=== PATIENT | male | born 1945 | race Caucasian/White ===

== ENCOUNTER 2018-03-08 21:47 | Observation (INO) | payer OTHER ==
[~2018-03-08] VITALS: Ht 167.6 cm; Wt 135.0 kg
[~2018-03-08 21:47] MED LIST: BLOO-462 MC; CITA-107 PO; CLOR7.5T5 PO; DEXL60CA3 PO; DIGO250T13 PO; DILT240C3 PO; ENAL1TAB11 PO; FLUT16H NASAL; FURO20TA4 PO; GLYB5TAB8 PO; GUAI600T94 PO; METF-446 PO; METH1TAB55 PO; MONT10TA24 PO; PIOG30TA70 PO; RIVA20TA PO; SIMV10TA6 PO; SYMB8060 IH; TERA10CA4 PO; [UNRECOGNIZED DRUG - CODE] MC
[2018-03-08] MEDS ORDERED: SODIUM CHLORIDE 0.9% 500ML 500 ML IV ONE (22:08)
[2018-03-08 22:12] LABS: BASOPHILS % (AUTO) 0.8 % (0.0-5.0); EOSINOPHILS % (AUTO) 0.3 % (0.0-8.0); HEMATOCRIT 35.9 % (42-54); LYMPHOCYTES % (AUTO) 18.7 % (21.0-51.0); MEAN CORPUSCULAR HEMOGLOBIN 33.1 pg (27.0-33.0); MEAN CORPUSCULAR HGB CONC 32.4 g/dL (32.0-36.0); NEUTROPHILS % (AUTO) 73.2 % (40.0-77.0); NUCLEATED RED BLOOD CELLS 0.1 % (0.0-0.19); PLATELET COUNT (AUTO) 168 K/uL (130-400); RED BLOOD CELL COUNT(AUTO) 3.52 MIL/uL (4.50-6.20); RED CELL DISTRIBUTION WIDTH 17.1 % (11.0-15.5); WHITE BLOOD COUNT (AUTO) 9.3 K/uL (4.8-10.8)
[2018-03-08 22:14] LABS: CREATININE 1.4 mg/dL (0.5-1.5)
[2018-03-08 22:18] LABS: INR 1.02 (0.85-1.15); PARTIAL THROMBOPLASTIN TIME 33.5 SEC (26.3-35.5); PROTHROMBIN TIME 10.7 SEC (9.6-11.6)
[2018-03-08 22:19] LABS: ALBUMIN 3.1 g/dL (3.5-5.0); BILIRUBIN,TOTAL 0.2 mg/dL (0.2-1.0); TOTAL PROTEIN, SERUM 7.2 g/dL (6.0-8.3)
[2018-03-09 00:02] LABS: APPEARANCE,URINE Clear (CLEAR); BILIRUBIN,URINE Negative (NEGATIVE); COLOR,URINE Yellow (YELLOW); GLUCOSE, URINE (UA) Negative (NEGATIVE); KETONES,URINE Negative (NEGATIVE); LEUKOCYTE ESTERASE ,URINE Negative (NEGATIVE); NITRATE,URINE Negative (NEGATIVE); OCCULT BLOOD,URINE Negative (NEGATIVE); PROTEIN,URINE Negative (NEGATIVE); UROBILINOGEN,URINE 0.2 mg/dL (0.2-1.0)
[2018-03-09] MEDS ORDERED: DEXTROSE 50%-WATER 50 ML DISP.SYRIN IV ONE (00:53)
[2018-03-09] MEDS ORDERED: IPRATROPIUM/ALBUTEROL SULFATE 3 ML SOLUTION IH ONE (02:27)
[2018-03-09] MEDS ORDERED: LACTATED RINGERS 1000ML 1,000 ML IV SCH (03:30)
[2018-03-09] MEDS ORDERED: PHARMACY COMMUNICATION MISC SCH (03:30)
[2018-03-09] MEDS ORDERED: MORPHINE SULFATE 2 MG/ML 1ML SYG IVP PRN (03:30)
[2018-03-09] MEDS ORDERED: DEXTROSE 50%-WATER 50 ML DISP.SYRIN IV PRN (03:30)
[2018-03-09] MEDS ORDERED: GLUCAGON 1MG KIT 1 MG ML IM PRN (03:30)
[2018-03-09] MEDS ORDERED: ONDANSETRON HCL MDV 20ML 2 MG/ML VIAL IVP PRN (03:30)
[2018-03-09] MEDS ORDERED: ACETAMINOPHEN 325 MG TAB PO PRN (03:30)
[2018-03-09] MEDS ORDERED: SODIUM CHLORIDE 0.9% 1000ML 1,000 ML IV ONE (05:03)
[2018-03-09] MEDS ORDERED: THIAMINE HCL 100 MG/ML 2ML VIAL ONE (05:03)
[2018-03-09] MEDS ORDERED: M.V.I. IV [ADULT] 10 ML VIAL IV ONE (05:04)
[2018-03-09] MEDS ORDERED: FOLIC ACID 5 MG/ML 10 ML VIAL ONE (05:05)
[2018-03-09] MEDS ORDERED: INSULIN R NPO SSI SQ SCH (06:00)
[2018-03-09 06:35] VITALS: BP 135/72
--- NOTE | 2018-03-09 08:00 | NUR ---
PT AAO X [address] UPDATE [address]. MICHAEL CALL LIGHT IN REACH..
[2018-03-09] MEDS ORDERED: COMPOUND IV REFRIGERATED 1 EACH IVSOLN MISC PRN (08:45)
[2018-03-09] MEDS ORDERED: M.V.I. IV [ADULT] 10 ML, THIAMINE HCL 100 MG, FOLIC ACID 1 MG in SODIUM CHLORIDE 0.9% 1... IV SCH ×2 (09:00→15:52)
[2018-03-09] MEDS: PANTOPRAZOLE SODIUM 40 MG TABLET.DR PO SCH (10:36)
[2018-03-09 12:17] VITALS: BP 106/44
[2018-03-09] MEDS ORDERED: IPRA4AER IH (15:35)
[2018-03-09] MEDS ORDERED: FURO40TA7 PO (15:35)
[2018-03-09] MEDS ORDERED: APIX5TAB PO (15:35)
[2018-03-09] MEDS ORDERED: METF-446 PO (15:35)
[2018-03-09] MEDS ORDERED: GLIP5TAB11 PO (15:35)
[2018-03-09] MEDS ORDERED: FLEC100T3 PO (15:35)
[2018-03-09] MEDS ORDERED: DILT240C3 PO (15:35)
[2018-03-09] MEDS ORDERED: POTA20TA82 PO (15:35)
[2018-03-09] MEDS ORDERED: SIMV20TA6 PO (15:35)
[2018-03-09] MEDS ORDERED: MOME13HF IH (15:35)
[2018-03-09] MEDS ORDERED: MONT10TA24 PO (15:35)
[2018-03-09] MEDS ORDERED: CITA-106 PO (15:35)
[2018-03-09] MEDS ORDERED: ENAL10TA PO (15:35)
[2018-03-09] MEDS ORDERED: TRAM50TA4 PO (15:35)
[2018-03-09] MEDS ORDERED: TERA10CA4 PO (15:35)
[2018-03-09] MEDS ORDERED: OMEP40CA37 PO (15:35)
[2018-03-09 16:00] VITALS: BP 109/57
[2018-03-09] MEDS ORDERED: INSULIN HUMULIN R 100 UNIT/ML 3ML SQ SCH (16:30)
--- NOTE | 2018-03-09 17:53 | NUR ---
DCP CM met with pt discussed dc plans. Pt is independent prior to admission, family member lives at home with pt, friend Catherine lives close by. Pt uses oxygen, cpap, nebulizer at home. Denies any other equipments/services. Pt feels safe to go back home, firend assists with transportation and needs as necessary. DC plan to home once stable. CM to cont to follow up. Addendum: 03/09/18 at 1756 by KATERIN TEE LVN CM Amended: Links added.
--- NOTE | 2018-03-09 18:10 | NUR ---
DR. JIMENEZ HERE AND SPOKE WITH PT. REGARDING HIS CARE. REVIEW HOME MEDICATION AND HOME ENVIROMENT. . .. WITH . UPDATE PT RHYTHM NOW A- FIB. HR 100'S HEART DRBrian IS DR OTERO .
[2018-03-09] MEDS ORDERED: TRAMADOL HCL 50 MG TABLET PO PRN (18:45)
[2018-03-09] MEDS ORDERED: HEPARIN SODIUM 5000UNIT/ML 1ML VIAL SQ SCH (18:45)
[2018-03-09] MEDS ORDERED: LORAZEPAM 2 MG/ML 1 ML VIAL IVP PRN (18:45)
[2018-03-09 20:00] VITALS: BP_SYST 105; BP_SYST 137; BP_DIAS 64; BP_DIAS 92
--- NOTE | 2018-03-09 20:59 | NUR ---
PAGED MD NOGUERA PAGED MD NOGUERA THROUGH ANSWERING SERVICE. SPOKE TO JEN AND STATES MD THOMPSON IS [employer] OPERATOR. ORDER IS TO CONSULT MD NOGUERA BECAUSE PATIENT SEES MD NOGUERA. WILL PAGE IN AM AND ENDORSE TO DAY NURSE.
[2018-03-09] MEDS ORDERED: SIMVASTATIN 20 MG TABLET PO SCH (21:00)
[2018-03-09] MEDS ORDERED: TERAZOSIN HCL 5 MG CAPSULE PO SCH (21:00)
[2018-03-09] MEDS: INSULIN HUMULIN R 100 UNIT/ML 3ML SQ SCH (21:00)
[2018-03-09] MEDS ORDERED: MONTELUKAST SODIUM 10 MG TAB PO SCH (21:00)
[2018-03-09 21:34] VITALS: BP 128/64
[2018-03-09] MEDS: POTASSIUM CHLORIDE 20 MEQ ERTAB PO SCH (21:50)
[2018-03-09] MEDS: HEPARIN SODIUM 5000UNIT/ML 1ML VIAL SQ SCH (22:08)
[2018-03-09] MEDS: IPRATROPIUM 0.5 MG/2.5 ML INH IH SCH (23:04)
[2018-03-10] VITALS (7 sets, daily range): BP systolic 110–135; BP diastolic 57–77
[2018-03-10] MEDS: IPRATROPIUM 0.5 MG/2.5 ML INH IH SCH ×3 (06:19→19:26)
[2018-03-10] MEDS: INSULIN HUMULIN R 100 UNIT/ML 3ML SQ SCH ×3 (07:05→16:30)
[2018-03-10] MEDS ORDERED: PANTOPRAZOLE SODIUM 40 MG TABLET.DR PO SCH (07:30)
[2018-03-10] MEDS ORDERED: MOMETASONE IH SCH (09:00)
[2018-03-10] MEDS ORDERED: DILTIAZEM HCL 120 MG CAP.SR.24H PO SCH (09:00)
[2018-03-10] MEDS ORDERED: CITALOPRAM 20 MG TABLET PO SCH (09:00)
[2018-03-10] MEDS ORDERED: ENALAPRIL MALEATE 10 MG TABLET PO SCH (09:00)
[2018-03-10] MEDS ORDERED: FORMOTEROL IH SCH (09:00)
[2018-03-10] MEDS ORDERED: FLECAINIDE ACETATE 100 MG TABLET PO SCH ×2 (09:00→21:00)
[2018-03-10] MEDS: PANTOPRAZOLE SODIUM 40 MG TABLET.DR PO SCH (09:00)
[2018-03-10] MEDS: POTASSIUM CHLORIDE 20 MEQ ERTAB PO SCH (09:24)
[2018-03-10] MEDS: HEPARIN SODIUM 5000UNIT/ML 1ML VIAL SQ SCH (09:27)
[2018-03-10] MEDS ORDERED: POTASSIUM CHLORIDE 20 MEQ ERTAB PO PRN (16:45)
[2018-03-10] MEDS ORDERED: POTASSIUM CHLORIDE 20MEQ/100ML 100 ML IV PRN (16:45)
[2018-03-10] MEDS ORDERED: POTASSIUM CHLORIDE 10% ELIXIR 20 MEQ/15 ML UDCUP PO PRN (16:45)
[2018-03-10] MEDS ORDERED: CHLORDIAZEPOXIDE HCL 25 MG CAP PO PRN (16:45)
[2018-03-10] MEDS ORDERED: LIDOCAINE HCL-MPF 1% 2ML VIAL IVP PRN (16:45)
[2018-03-10] MEDS ORDERED: LEVOFLOXACIN 500 MG TABLET PO SCH (17:00)
[2018-03-10] MEDS ORDERED: RIVAROXABAN 20 MG TABLET PO SCH (17:00)
[2018-03-10] MEDS ORDERED: FUROSEMIDE 10 MG/ML 4ML VIAL IV ONE (18:00)
[2018-03-10] MEDS ORDERED: METOPROLOL TARTRATE 25 MG TAB PO SCH (21:00)
--- NOTE | 2018-03-10 21:15 | NUR ---
DISCHARGE Obtained orders for patient to be bathed before discharge; patient has showered. Patient sitting on side of bed, AA&O X3. No shortness of breath or distress. No chest pain or pain at this time. Reviewed discharge packet and recommendations by MD. Educated patient on daily weight, ETOH cessation, exercising for weight loss, and seeking [facility] evaluation as an outpatient. Discussed and provided phone numbers for MD follow ups. Patient states he understands and has no questions at this time. Day shift nurse TONA Green obtained picture of skin tear to right elbow. Removed 20 gauge to left AC; catheter intact. Removed tele monitor. Patient's home provider, Catherine Muir, called to report that she is waiting in front of lobby. Nurse social media assistant transferred patient via wheelchair. All belongings were taken by patient.
[2018-03-11] MEDS ORDERED: THIAMINE HCL 100 MG TABLET PO SCH (09:00)
[2018-03-11] MEDS ORDERED: FOLIC ACID 1 MG TABLET PO SCH (09:00)
[2018-03-11] MEDS ORDERED: MULTIVITAMIN WITH MINERALS TABLET PO SCH (09:00)
[2018-03-11] MEDS ORDERED: FUROSEMIDE 10 MG/ML 2ML VIAL IV SCH (09:00)
== END 2018-03-10 21:15 | disposition home or self-care (01) ==
LOC: EDH 21:47 → EDHIP 03-09 03:15 → 3CH 03-09 05:49
PROVIDERS: ADMIT Internal Medicine Critical Care Medicine; ATTEND Internal Medicine Critical Care Medicine
DX: J44.1 Chronic obstructive pulmonary disease with (acute) exacerbation (principal); I48.0 Paroxysmal atrial fibrillation; E11.9 Type 2 diabetes mellitus without complications; E78.5 Hyperlipidemia, unspecified; I11.0 Hypertensive heart disease with heart failure; I50.9 Heart failure, unspecified; E66.01 Morbid (severe) obesity due to excess calories; I87.2 Venous insufficiency (chronic) (peripheral); R29.6 Repeated falls; F41.9 Anxiety disorder, unspecified; F32.9 Major depressive disorder, single episode, unspecified; W19.XXXA Unspecified fall, initial encounter; Y92.009 Unspecified place in unspecified non-institutional (private) residence as the place of occurrence of the external cause; Z79.01 Long term (current) use of anticoagulants; Z87.891 Personal history of nicotine dependence; Z82.5 Family history of asthma and other chronic lower respiratory diseases; Z96.652 Presence of left artificial knee joint
CPT/HCPCS: 36415; 70450; 71045; 71260; 72125; 72170; 73090; 74177; 80053; 81003; 82948 ×9; 83880; 84484 ×3; 85025; 85610; 85730; 93005; 94640 ×5; 94660 ×2; 94664; 96365; 96366 ×2; 96372 ×2; 97039; 97161; 99291; G0378 ×42; G8978; G8979; G8980; G8981; G8982; G8983; J1644 ×2; J1940; J2060; J3411 ×3; J3490 ×3; J7030 ×3; J7040; J7070; J7120

== ENCOUNTER 2018-07-10 12:20 | Inpatient (IN) | payer OTHER ==
[~2018-07-10] VITALS: Ht 180.3 cm; Wt 123.8 kg
[~2018-07-10 12:20] MED LIST changes: +APIX5TAB PO; +CITA-106 PO; -CITA-107 PO; -CLOR7.5T5 PO; -DEXL60CA3 PO; -DIGO250T13 PO; +ENAL10TA PO; -ENAL1TAB11 PO; +FLEC100T3 PO; -FLUT16H NASAL; -FURO20TA4 PO; +FURO40TA7 PO; +GLIP5TAB11 PO; -GLYB5TAB8 PO; -GUAI600T94 PO; +IPRA4AER IH; -METH1TAB55 PO; +MOME13HF IH; +OMEP40CA37 PO; -PIOG30TA70 PO; +POTA20TA82 PO; -RIVA20TA PO; -SIMV10TA6 PO; +SIMV20TA6 PO; -SYMB8060 IH; +TRAM50TA4 PO
[2018-07-10 12:44] LABS: ABG HCO3 24.8 mmol/L (21.0-28.0); ABG OXYGEN SATURATION 92.6 % (95.0-99.0); ABG PCO2 45 mmHg (35-48)
[2018-07-10 12:44] LABS: BASOPHILS % (AUTO) 0.4 % (0.0-5.0); EOSINOPHILS % (AUTO) 0.5 % (0.0-8.0); HEMATOCRIT 39.6 % (42-54); LYMPHOCYTES % (AUTO) 8.6 % (21.0-51.0); MEAN CORPUSCULAR HEMOGLOBIN 31.4 pg (27.0-33.0); MEAN CORPUSCULAR HGB CONC 32.9 g/dL (32.0-36.0); MEAN CORPUSCULAR VOLUME 95.4 fL (79-99); MONOCYTES % (AUTO) 10.2 % (3.0-13.0); NEUTROPHILS % (AUTO) 80.3 % (40.0-77.0); PLATELET COUNT (AUTO) 281 K/uL (130-400); RED BLOOD CELL COUNT(AUTO) 4.15 MIL/uL (4.50-6.20)
[2018-07-10] MEDS ORDERED: IPRATROPIUM/ALBUTEROL SULFATE 3 ML SOLUTION IH ONE (12:46)
[2018-07-10 12:50] LABS: CREATININE 1.1 mg/dL (0.5-1.5)
[2018-07-10 12:53] LABS: INR 1.05 (0.85-1.15); PARTIAL THROMBOPLASTIN TIME 38.7 SEC (26.3-35.5)
[2018-07-10 12:55] LABS: ALBUMIN 2.6 g/dL (3.5-5.0); BILIRUBIN,TOTAL 0.7 mg/dL (0.2-1.0)
[2018-07-10 13:13] LABS: B-TYPE NATRIURETIC PEPTIDE 1030 pg/mL (0-100)
[2018-07-10] MEDS ORDERED: METHYLPREDNISOLONE SOD SUCC 125MG/2ML VIAL ONE (13:18)
[2018-07-10] MEDS ORDERED: MEROPENEM 1 GM VIAL ONE (13:51)
[2018-07-10] MEDS ORDERED: ALBUMIN (HUMAN) 25% 50 ML IV ONE (14:07)
[2018-07-10 15:40] VITALS: BP 161/99
--- NOTE | 2018-07-10 16:00 | NUR ---
ADMISSION RECEIVED PT FROM ER, A&OX3, CALM COOPERATIVE WITH NRB MASK IN PLACE, PT IS ABLE TO AMBULATE FROM GURNEY TO CHAIR, GAIT SLOW BUT STEADY WITH ASSIST AND SITTING IN SIDE OF BED IN ORTHOPNEIC POSITION, PT STATES HE FEELS BETTER, DENIES PAIN, DIZZINESS BUT DOES C/O SHORTNESS OF BREATH THAT IMPROVES WHEN IN SITTING POSITION. PT RESTING COMFORTABLY WATCHING TV, CALL LIGHT WITHIN REACH.
[2018-07-10] MEDS ORDERED: ENOXAPARIN SODIUM 40 MG/0.4 ML SYRINGE SQ SCH (16:07)
[2018-07-10] MEDS ORDERED: RIVA20TA PO (16:15)
[2018-07-10] MEDS ORDERED: VANCOMYCIN PROTOCOL PER PHARMACY IV SCH (16:15)
[2018-07-10] MEDS ORDERED: ACETAMINOPHEN 325 MG TAB PO PRN (16:15)
[2018-07-10] MEDS ORDERED: MORPHINE SULFATE 2 MG/ML 1ML SYG IVP PRN (16:15)
[2018-07-10] MEDS ORDERED: HYDROCODONE/ACETAMINOPHEN 5/325 MG TAB PO PRN (16:15)
[2018-07-10] MEDS ORDERED: ONDANSETRON HCL 4 MG/2 ML VIAL IVP PRN (16:15)
[2018-07-10] MEDS ORDERED: IPRATROPIUM/ALBUTEROL SULFATE 3 ML SOLUTION IH PRN ×2 (16:15→16:30)
[2018-07-10] MEDS ORDERED: COMPOUND IV REFRIGERATED 1 EACH IVSOLN MISC PRN (16:30)
[2018-07-10] MEDS ORDERED: TRAMADOL HCL 50 MG TABLET PO PRN (16:30)
[2018-07-10] MEDS ORDERED: LEVOFLOXACIN 750 MG/D5W 150 ML 150 ML IV SCH (16:30)
--- NOTE | 2018-07-10 16:30 | NUR ---
RT SIDED THORACENTESIS AT BEDSIDE BY DR CROWE, 900ML OF THIN CLEAR YELLOW FLUID REMOVED, PT TOLERATED WELL, CALL LIGHT WITHIN REACH.
[2018-07-10] MEDS ORDERED: CEFTAZIDIME PENTAHYDRATE 1 GM/VIAL IVP SCH (17:00)
[2018-07-10] MEDS: FUROSEMIDE 10 MG/ML 2ML VIAL IVP SCH (17:57)
[2018-07-10] MEDS ORDERED: INSULIN R NPO SS1/2 SQ SCH (18:00)
[2018-07-10] MEDS ORDERED: VANCOMYCIN 2 GM in SODIUM CHLORIDE 0.9% 500ML 500 ML IV SCH (18:00)
[2018-07-10] MEDS: IPRATROPIUM/ALBUTEROL SULFATE 3 ML SOLUTION IH SCH ×2 (18:22→23:48)
[2018-07-10] MEDS: BUDESONIDE 0.5 MG/2 ML INH IH SCH (18:45)
[2018-07-10] MEDS ORDERED: GLUCAGON 1MG KIT 1 MG ML IM PRN (18:45)
[2018-07-10] MEDS ORDERED: PHARMACY COMMUNICATION MISC SCH (18:45)
[2018-07-10] MEDS ORDERED: DEXTROSE 50%-WATER 50 ML DISP.SYRIN IV PRN (18:45)
[2018-07-10] MEDS: DILTIAZEM HCL 120 MG CAP.SR.24H PO SCH (18:50)
[2018-07-10] MEDS: ENALAPRIL MALEATE 10 MG TABLET PO SCH (18:50)
[2018-07-10 19:13] VITALS: BP 137/74
[2018-07-10 19:47] LABS: APPEARANCE BODY FLUID CLOUDY (CLEAR); SPECIMENTYPE,BODY FLUID PLEURAL FLUID
[2018-07-10 19:48] LABS: BODY FLUID RBC 3075 /cu. mm.; BODY FLUID WBC 965 /cu. mm.; COLOR,BODY FLUID DARK YELLOW (LT YELLOW); TOTAL VOLUME,BODY FLUID 960 mL
[2018-07-10 19:52] LABS: BF LYMPHOCYTE 28 %; BF MONOCYTE 15 %
[2018-07-10] MEDS: SIMVASTATIN 20 MG TABLET PO SCH (21:00)
[2018-07-10] MEDS: FAMOTIDINE/PF 20 MG/2 ML VIAL IV SCH (21:00)
[2018-07-10] MEDS: POTASSIUM CHLORIDE 20 MEQ ERTAB PO SCH (21:00)
[2018-07-10] MEDS: TERAZOSIN HCL 5 MG CAPSULE PO SCH (21:00)
[2018-07-10] MEDS: LEVOFLOXACIN 750 MG/D5W 150 ML 150 ML IV SCH (21:00)
[2018-07-10] MEDS: CEFTAZIDIME PENTAHYDRATE 1 GM/VIAL IVP SCH (21:00)
[2018-07-10] MEDS: METHYLPREDNISOLONE SOD SUCC 40MG/ML 1ML IVP SCH (21:00)
[2018-07-10] MEDS: INSULIN HUMULIN R 100 UNIT/ML 3ML SQ SCH (21:00)
[2018-07-10] MEDS: MONTELUKAST SODIUM 10 MG TAB PO SCH (21:00)
[2018-07-10 23:43] VITALS: BP 104/52
[2018-07-11 03:54] VITALS: BP 113/57
[2018-07-11 04:01] LABS: ABG BASE EXCESS 1.3 mmol/L (-2.0-3.0); ABG OXYGEN SATURATION 89.9 % (95.0-99.0); ABG PCO2 37 mmHg (35-48)
[2018-07-11 04:19] LABS: HEMATOCRIT 33.1 % (42-54); MEAN CORPUSCULAR HEMOGLOBIN 32.2 pg (27.0-33.0); MEAN CORPUSCULAR HGB CONC 33.8 g/dL (32.0-36.0); MEAN CORPUSCULAR VOLUME 95.4 fL (79-99); PLATELET COUNT (AUTO) 232 K/uL (130-400); RED BLOOD CELL COUNT(AUTO) 3.47 MIL/uL (4.50-6.20); RED CELL DISTRIBUTION WIDTH 16.2 % (11.0-15.5); WHITE BLOOD COUNT (AUTO) 9.2 K/uL (4.8-10.8)
[2018-07-11 04:36] LABS: CREATININE 1.1 mg/dL (0.5-1.5); POTASSIUM 4.2 mmol/L (3.5-5.1)
[2018-07-11] MEDS: BUDESONIDE 0.5 MG/2 ML INH IH SCH ×2 (06:07→19:36)
[2018-07-11] MEDS: IPRATROPIUM/ALBUTEROL SULFATE 3 ML SOLUTION IH SCH ×4 (06:07→23:23)
[2018-07-11] MEDS: CEFTAZIDIME PENTAHYDRATE 1 GM/VIAL IVP SCH ×3 (06:12→22:23)
[2018-07-11] MEDS: FUROSEMIDE 10 MG/ML 2ML VIAL IVP SCH ×2 (06:12→17:47)
[2018-07-11] MEDS: METHYLPREDNISOLONE SOD SUCC 40MG/ML 1ML IVP SCH ×3 (06:13→22:23)
[2018-07-11] MEDS: INSULIN HUMULIN R 100 UNIT/ML 3ML SQ SCH ×4 (06:15→22:37)
[2018-07-11 07:00] VITALS: BP 114/70
--- NOTE | 2018-07-11 07:45 | NUR ---
ASSESSMENT ENCOUNTERED PT A&OX3, CALM COOPERATIVE AND DOES NOT APPEAR TO BE IN ANY DISTRESS NOR ANY NEURO DEFICITS PRESENT. PT DENIES PAIN, DIZZINESS OR LIGHTHEADEDNESS BUT DOES C/O DYSPNEA ON EXERTION. PT ON VENTI MASK, RESTING COMFORTABLY. CALL LIGHT WITHIN REACH.
[2018-07-11] MEDS ORDERED: RIVAROXABAN 20 MG TABLET PO SCH (09:00)
[2018-07-11] MEDS ORDERED: ENALAPRIL MALEATE 10 MG TABLET PO SCH (09:00)
[2018-07-11] MEDS: FAMOTIDINE/PF 20 MG/2 ML VIAL IV SCH ×2 (09:00→22:23)
[2018-07-11] MEDS ORDERED: DILTIAZEM HCL 120 MG CAP.SR.24H PO SCH (09:00)
[2018-07-11] MEDS: FLECAINIDE ACETATE 100 MG TABLET PO SCH (10:08)
[2018-07-11] MEDS: CITALOPRAM 20 MG TABLET PO SCH (10:08)
[2018-07-11] MEDS: GLIPIZIDE 5 MG TABLET PO SCH (10:08)
[2018-07-11] MEDS: ENALAPRIL MALEATE 10 MG TABLET PO SCH (10:08)
[2018-07-11] MEDS: POTASSIUM CHLORIDE 20 MEQ ERTAB PO SCH ×2 (10:09→22:24)
[2018-07-11] MEDS: DILTIAZEM HCL 120 MG CAP.SR.24H PO SCH (10:09)
[2018-07-11] MEDS: VANCOMYCIN 1.5 GM in SODIUM CHLORIDE 0.9% 250 ML IV SCH ×2 (10:10→22:23)
[2018-07-11] MEDS: PANTOPRAZOLE SODIUM 40 MG TABLET.DR PO SCH (10:17)
[2018-07-11 11:00] VITALS: BP 142/70
[2018-07-11] MEDS: LORAZEPAM 1 MG TABLET PO PRN ×2 (14:28→22:24)
[2018-07-11 16:00] VITALS: BP 132/75
--- NOTE | 2018-07-11 17:05 | NUR ---
cm note met with patient and states resides at home with friends wilfred hodge and katelin. pt states he is independent with adls and self care. has a cpap machine with o2 concentrator for night only. no portable. [facility] plan is back to home setting. pt drives. states no dc needs. Addendum: 07/11/18 at 1706 by RODOLFO KIRBY CM Amended: Links added.
[2018-07-11 19:29] VITALS: BP 117/68
[2018-07-11] MEDS: LEVOFLOXACIN 750 MG/D5W 150 ML 150 ML IV SCH (22:22)
[2018-07-11] MEDS: SIMVASTATIN 20 MG TABLET PO SCH (22:24)
[2018-07-11] MEDS: TERAZOSIN HCL 5 MG CAPSULE PO SCH (22:24)
[2018-07-11] MEDS: MONTELUKAST SODIUM 10 MG TAB PO SCH (22:24)
[2018-07-11 23:55] VITALS: BP 120/76
[2018-07-12] VITALS (21 sets, daily range): BP systolic 96–132; BP diastolic 48–76
[2018-07-12] MEDS: FUROSEMIDE 10 MG/ML 2ML VIAL IVP SCH ×2 (06:13→19:27)
[2018-07-12] MEDS: PANTOPRAZOLE SODIUM 40 MG TABLET.DR PO SCH (06:13)
[2018-07-12] MEDS: METHYLPREDNISOLONE SOD SUCC 40MG/ML 1ML IVP SCH ×3 (06:13→20:49)
[2018-07-12] MEDS: CEFTAZIDIME PENTAHYDRATE 1 GM/VIAL IVP SCH ×3 (06:13→20:49)
[2018-07-12] MEDS: INSULIN HUMULIN R 100 UNIT/ML 3ML SQ SCH ×4 (06:14→21:03)
[2018-07-12 06:16] LABS: HEMATOCRIT 32.6 % (42-54); MEAN CORPUSCULAR HEMOGLOBIN 31.2 pg (27.0-33.0); MEAN CORPUSCULAR HGB CONC 32.8 g/dL (32.0-36.0); MEAN CORPUSCULAR VOLUME 95.2 fL (79-99); PLATELET COUNT (AUTO) 290 K/uL (130-400); RED BLOOD CELL COUNT(AUTO) 3.43 MIL/uL (4.50-6.20); WHITE BLOOD COUNT (AUTO) 14.8 K/uL (4.8-10.8)
[2018-07-12] MEDS: IPRATROPIUM/ALBUTEROL SULFATE 3 ML SOLUTION IH SCH ×4 (06:17→23:16)
[2018-07-12 06:31] LABS: INR 1.11 (0.85-1.15); PARTIAL THROMBOPLASTIN TIME 36.6 SEC (26.3-35.5); PROTHROMBIN TIME 11.6 SEC (9.6-11.6)
[2018-07-12 06:34] LABS: POTASSIUM 4.4 mmol/L (3.5-5.1)
[2018-07-12] MEDS: BUDESONIDE 0.5 MG/2 ML INH IH SCH ×2 (06:37→18:24)
--- NOTE | 2018-07-12 07:45 | NUR ---
ASSESSMENT ENCOUNTERED PT A&OX3, CALM COOPERATIVE AND DOES NOT APPEAR TO BE IN ANY DISTRESS NOR ANY NEURO DEFICITS PRESENT. PT DENIES PAIN, SOB, NAUSEA BUT DOES C/O ANXIETY. PT IS NPO FOR PENDING VATS BY DR CHRISTENSEN. CALL LIGHT WITHIN REACH, FAMILY AT BEDSIDE.
[2018-07-12] MEDS: CITALOPRAM 20 MG TABLET PO SCH (09:00)
[2018-07-12] MEDS: POTASSIUM CHLORIDE 20 MEQ ERTAB PO SCH ×2 (09:00→20:48)
[2018-07-12] MEDS: FLECAINIDE ACETATE 100 MG TABLET PO SCH (09:00)
[2018-07-12] MEDS: GLIPIZIDE 5 MG TABLET PO SCH (09:00)
[2018-07-12] MEDS ORDERED: LORAZEPAM 2 MG/ML 1 ML VIAL IVP PRN (09:15)
[2018-07-12] MEDS: ENALAPRIL MALEATE 10 MG TABLET PO SCH (09:34)
[2018-07-12] MEDS: DILTIAZEM HCL 120 MG CAP.SR.24H PO SCH (09:34)
[2018-07-12] MEDS: VANCOMYCIN 1.5 GM in SODIUM CHLORIDE 0.9% 250 ML IV SCH (09:36)
[2018-07-12] MEDS: FAMOTIDINE/PF 20 MG/2 ML VIAL IV SCH ×2 (09:38→20:49)
[2018-07-12] MEDS: CLINDAMYCIN 900 MG/D5% WATER 50 ML IV SCH ×2 (14:00→16:20)
[2018-07-12] MEDS ORDERED: SODIUM CHLORIDE 0.9% 1000ML 1,000 ML IV ONE (15:10)
[2018-07-12] MEDS ORDERED: PROPOFOL 10 MG/ML 20ML VIAL IV ONE (15:45)
[2018-07-12] MEDS ORDERED: LIDOCAINE PF 2% 5ML ABBOJECT ONE ×2 (15:45→15:46)
[2018-07-12] MEDS ORDERED: SUCCINYLCHOLINE 200MG/10ML SYR ONE (15:45)
[2018-07-12] MEDS ORDERED: GLYCOPYRROLATE 1 MG/5 ML SYRINGE ONE (15:45)
[2018-07-12] MEDS ORDERED: DEXAMETHASONE SOD PHOSPHATE 10MG/ML 1ML VIAL ONE (15:45)
[2018-07-12] MEDS ORDERED: ONDANSETRON HCL 4 MG/2 ML VIAL ONE (15:45)
[2018-07-12] MEDS ORDERED: NEOSTIGMINE 5MG/5ML SYR IV ONE ×2 (15:46→17:49)
[2018-07-12] MEDS ORDERED: ROCURONIUM 10MG/1ML SYR 10 MG/ML ML ONE (15:46)
[2018-07-12] MEDS ORDERED: FENTANYL CITRATE PF 50 MCG/1 ML 2ML VIAL ONE (15:46)
[2018-07-12] MEDS ORDERED: MIDAZOLAM HCL 1 MG/ML 2ML VIAL ONE (15:46)
[2018-07-12] MEDS ORDERED: BACITRACIN 50,000 UNIT VIAL ONE (16:37)
[2018-07-12] MEDS ORDERED: BUPIVACAINE/PF 0.5% 10ML VIAL ONE (16:55)
[2018-07-12] MEDS ORDERED: LIDOCAINE HCL 1% 20 ML VIAL ONE (16:55)
[2018-07-12] MEDS ORDERED: MORPHINE SULFATE 2 MG/ML 1ML SYG IVP PRN (17:15)
--- NOTE | 2018-07-12 18:05 | NUR ---
RECEIVE PT FROM O.R. STAFF- EXTUBATED. AWAKE ON 100% NRB MASK. TRANSITION IN PROGRESS.
--- NOTE | 2018-07-12 18:25 | NUR ---
PT STATES HE FEELS SOB. I HAVE HAD R.T. PLACE HIM BACK ON BIPAP
--- NOTE | 2018-07-12 19:14 | NUR ---
HAND OFF REPORT GIVEN TO CALDERON CARBONE
[2018-07-12] MEDS: MORPHINE SULFATE 2 MG/ML 1ML SYG IVP PRN (19:41)
[2018-07-12] MEDS: TERAZOSIN HCL 5 MG CAPSULE PO SCH (20:48)
[2018-07-12] MEDS: MONTELUKAST SODIUM 10 MG TAB PO SCH (20:49)
[2018-07-12] MEDS: SIMVASTATIN 20 MG TABLET PO SCH (20:49)
[2018-07-12] MEDS: LEVOFLOXACIN 750 MG/D5W 150 ML 150 ML IV SCH (21:00)
[2018-07-12 21:12] LABS: APPEARANCE BODY FLUID CLOUDY (CLEAR); COLOR,BODY FLUID YELLOW (LT YELLOW); SPECIMENTYPE,BODY FLUID PLEURAL
[2018-07-12 21:13] LABS: BODY FLUID RBC 6275 /cu. mm.; BODY FLUID WBC 1149 /cu. mm.; TOTAL VOLUME,BODY FLUID 50 mL
[2018-07-12 21:59] LABS: BF LYMPHOCYTE 34 %; BF MONOCYTE 12 %
[2018-07-13] VITALS (15 sets, daily range): BP systolic 98–122; BP diastolic 56–74
[2018-07-13] MEDS: MORPHINE SULFATE 2 MG/ML 1ML SYG IVP PRN (02:08)
[2018-07-13 04:07] LABS: BASOPHILS % (AUTO) 0.1 % (0.0-5.0); HEMATOCRIT 34.5 % (42-54); LYMPHOCYTES % (AUTO) 1.8 % (21.0-51.0); MEAN CORPUSCULAR HGB CONC 33.5 g/dL (32.0-36.0); MEAN CORPUSCULAR VOLUME 95.5 fL (79-99); MONOCYTES % (AUTO) 5.8 % (3.0-13.0); NEUTROPHILS % (AUTO) 92.3 % (40.0-77.0); PLATELET COUNT (AUTO) 294 K/uL (130-400); RED BLOOD CELL COUNT(AUTO) 3.62 MIL/uL (4.50-6.20); RED CELL DISTRIBUTION WIDTH 16.3 % (11.0-15.5); WHITE BLOOD COUNT (AUTO) 14.9 K/uL (4.8-10.8)
[2018-07-13 04:17] LABS: CREATININE 1.1 mg/dL (0.5-1.5); POTASSIUM 4.3 mmol/L (3.5-5.1)
[2018-07-13] MEDS: CEFTAZIDIME PENTAHYDRATE 1 GM/VIAL IVP SCH ×3 (05:10→20:42)
[2018-07-13] MEDS: METHYLPREDNISOLONE SOD SUCC 40MG/ML 1ML IVP SCH ×2 (05:11→20:43)
[2018-07-13] MEDS: FUROSEMIDE 10 MG/ML 2ML VIAL IVP SCH ×2 (05:11→16:31)
[2018-07-13] MEDS: TRAMADOL HCL 50 MG TABLET PO PRN ×2 (05:42→18:29)
[2018-07-13] MEDS: VANCOMYCIN 1GM+NS 250ML 250 ML IV SCH ×2 (05:42→19:38)
[2018-07-13] MEDS: PANTOPRAZOLE SODIUM 40 MG TABLET.DR PO SCH (06:32)
[2018-07-13] MEDS: INSULIN HUMULIN R 100 UNIT/ML 3ML SQ SCH ×4 (06:33→20:45)
[2018-07-13] MEDS: IPRATROPIUM/ALBUTEROL SULFATE 3 ML SOLUTION IH SCH ×4 (06:53→23:23)
[2018-07-13] MEDS: BUDESONIDE 0.5 MG/2 ML INH IH SCH ×2 (07:13→19:06)
[2018-07-13] MEDS ORDERED: COMPOUND IV REFRIGERATED 1 EACH IVSOLN MISC PRN (09:30)
[2018-07-13] MEDS: GLIPIZIDE 5 MG TABLET PO SCH (09:57)
[2018-07-13] MEDS: CITALOPRAM 20 MG TABLET PO SCH (09:57)
[2018-07-13] MEDS: FAMOTIDINE/PF 20 MG/2 ML VIAL IV SCH ×2 (09:57→20:43)
[2018-07-13] MEDS: DILTIAZEM HCL 120 MG CAP.SR.24H PO SCH (09:57)
[2018-07-13] MEDS: ENALAPRIL MALEATE 10 MG TABLET PO SCH (09:58)
[2018-07-13] MEDS: FLECAINIDE ACETATE 100 MG TABLET PO SCH (09:58)
[2018-07-13] MEDS: ENOXAPARIN SODIUM 40 MG/0.4 ML SYRINGE SQ SCH (09:59)
[2018-07-13] MEDS: M.V.I. IV [ADULT] 10 ML, FOLIC ACID 1 MG, THIAMINE HCL 100 MG in SODIUM CHLORIDE 0.9% 1... IV SCH (10:00)
[2018-07-13] MEDS: POTASSIUM CHLORIDE 20 MEQ ERTAB PO SCH ×2 (16:31→20:44)
--- NOTE | 2018-07-13 18:09 | NUR ---
DIMAS PLAN VISITED WITH PATIENT. MARK FOR [facility]. PATIENT IS A GOOD CANDIDATE FOR [facility]. ON 3 ABX, CHEST TUBE, RESPIRATORY TOILETING. S.P VATS LUNG DECORTICATION. INFO SENT. REP VISITED. Addendum: 07/13/18 at 1811 by BRANDON ANDRADE RN CM Amended: Links added.
--- NOTE | 2018-07-13 18:11 | NUR ---
DC CENTRAL LINE. APPLIED PRESSURE NO SIGNS OF BLEEDING. NO SIGNS OF HEMATOMA. PATIENT TOLERATED WELL.
[2018-07-13] MEDS ORDERED: LORAZEPAM 2 MG/ML 1 ML VIAL IVP PRN (19:15)
[2018-07-13] MEDS ORDERED: CHLORDIAZEPOXIDE HCL 25 MG CAP PO PRN (19:15)
[2018-07-13] MEDS ORDERED: PHARMACY COMMUNICATION MISC PRN (19:15)
[2018-07-13 19:23] LABS: HEMATOCRIT 33.8 % (42-54); MEAN CORPUSCULAR HEMOGLOBIN 31.5 pg (27.0-33.0); MEAN CORPUSCULAR HGB CONC 32.8 g/dL (32.0-36.0); PLATELET COUNT (AUTO) 272 K/uL (130-400); RED BLOOD CELL COUNT(AUTO) 3.52 MIL/uL (4.50-6.20); RED CELL DISTRIBUTION WIDTH 16.2 % (11.0-15.5); WHITE BLOOD COUNT (AUTO) 13.4 K/uL (4.8-10.8)
[2018-07-13 19:29] LABS: CREATININE 1.4 mg/dL (0.5-1.5); POTASSIUM 4.1 mmol/L (3.5-5.1)
[2018-07-13] MEDS: LEVOFLOXACIN 750 MG/D5W 150 ML 150 ML IV SCH (20:41)
[2018-07-13] MEDS: SIMVASTATIN 20 MG TABLET PO SCH (20:43)
[2018-07-13] MEDS: MONTELUKAST SODIUM 10 MG TAB PO SCH (20:43)
[2018-07-13] MEDS: TERAZOSIN HCL 5 MG CAPSULE PO SCH (20:43)
[2018-07-14] VITALS (7 sets, daily range): BP systolic 90–123; BP diastolic 46–67
[2018-07-14] MEDS: CEFTAZIDIME PENTAHYDRATE 1 GM/VIAL IVP SCH ×3 (05:33→21:16)
[2018-07-14] MEDS: FUROSEMIDE 10 MG/ML 2ML VIAL IVP SCH ×2 (05:36→17:28)
[2018-07-14] MEDS: VANCOMYCIN 1GM+NS 250ML 250 ML IV SCH (05:37)
[2018-07-14] MEDS: PANTOPRAZOLE SODIUM 40 MG TABLET.DR PO SCH (05:37)
[2018-07-14] MEDS: INSULIN HUMULIN R 100 UNIT/ML 3ML SQ SCH ×4 (06:16→21:13)
[2018-07-14] MEDS: BUDESONIDE 0.5 MG/2 ML INH IH SCH ×2 (06:26→17:42)
[2018-07-14] MEDS: IPRATROPIUM/ALBUTEROL SULFATE 3 ML SOLUTION IH SCH ×4 (06:26→23:51)
--- NOTE | 2018-07-14 08:38 | NUR ---
DR. GONZALES IN ROOM EVALUATING CHEST TUBE AND SPEAKING WITH PT. RE:PLAN OF CARE. DR. NICOLE INCREASED CHEST TUBE SUCTION TO 30CM AND INFORMED PT. RE:CHEST TUBE LEAK. PT.'S QUESTIONS ANSWERED BY DR. GONZALES.
[2018-07-14] MEDS: ENALAPRIL MALEATE 10 MG TABLET PO SCH (09:00)
[2018-07-14] MEDS: CITALOPRAM 20 MG TABLET PO SCH (10:14)
[2018-07-14] MEDS: GLIPIZIDE 5 MG TABLET PO SCH (10:14)
[2018-07-14] MEDS: FLECAINIDE ACETATE 100 MG TABLET PO SCH (10:14)
[2018-07-14] MEDS: DILTIAZEM HCL 120 MG CAP.SR.24H PO SCH (10:15)
[2018-07-14] MEDS: METHYLPREDNISOLONE SOD SUCC 40MG/ML 1ML IVP SCH ×2 (10:15→21:16)
[2018-07-14] MEDS: POTASSIUM CHLORIDE 20 MEQ ERTAB PO SCH ×2 (10:15→21:16)
[2018-07-14] MEDS: ENOXAPARIN SODIUM 40 MG/0.4 ML SYRINGE SQ SCH (10:16)
[2018-07-14] MEDS: FAMOTIDINE/PF 20 MG/2 ML VIAL IV SCH ×2 (10:16→21:16)
[2018-07-14] MEDS: M.V.I. IV [ADULT] 10 ML, FOLIC ACID 1 MG, THIAMINE HCL 100 MG in SODIUM CHLORIDE 0.9% 1... IV SCH (10:17)
[2018-07-14] MEDS: TRAMADOL HCL 50 MG TABLET PO PRN ×2 (14:41→21:40)
[2018-07-14] MEDS: LEVOFLOXACIN 750 MG/D5W 150 ML 150 ML IV SCH (21:15)
[2018-07-14] MEDS: TERAZOSIN HCL 5 MG CAPSULE PO SCH (21:16)
[2018-07-14] MEDS: MONTELUKAST SODIUM 10 MG TAB PO SCH (21:16)
[2018-07-14] MEDS: SIMVASTATIN 20 MG TABLET PO SCH (21:16)
[2018-07-14] MEDS ORDERED: SIMETHICONE 80 MG TAB.CHEW PO PRN (23:45)
[2018-07-14] MEDS ORDERED: BISACODYL 10 MG SUPP.RECT RC PRN (23:45)
[2018-07-15 03:27] VITALS: BP 136/73
[2018-07-15 04:22] LABS: CREATININE 1.4 mg/dL (0.5-1.5); HEMATOCRIT 33.3 % (42-54); MEAN CORPUSCULAR HEMOGLOBIN 31.3 pg (27.0-33.0); MEAN CORPUSCULAR HGB CONC 33.2 g/dL (32.0-36.0); MEAN CORPUSCULAR VOLUME 94.4 fL (79-99); PLATELET COUNT (AUTO) 293 K/uL (130-400); POTASSIUM 4.8 mmol/L (3.5-5.1); RED BLOOD CELL COUNT(AUTO) 3.53 MIL/uL (4.50-6.20); WHITE BLOOD COUNT (AUTO) 10.9 K/uL (4.8-10.8)
[2018-07-15] MEDS: CEFTAZIDIME PENTAHYDRATE 1 GM/VIAL IVP SCH ×3 (05:09→21:06)
[2018-07-15] MEDS: VANCOMYCIN 500MG+NS 100ML 100 ML IV SCH ×2 (05:09→17:48)
[2018-07-15] MEDS: FUROSEMIDE 10 MG/ML 2ML VIAL IVP SCH ×2 (05:10→16:44)
[2018-07-15] MEDS: PANTOPRAZOLE SODIUM 40 MG TABLET.DR PO SCH (06:23)
[2018-07-15] MEDS: INSULIN HUMULIN R 100 UNIT/ML 3ML SQ SCH ×4 (06:24→21:08)
[2018-07-15 07:00] VITALS: BP 134/74
[2018-07-15] MEDS: BUDESONIDE 0.5 MG/2 ML INH IH SCH ×2 (07:20→18:38)
[2018-07-15] MEDS: IPRATROPIUM/ALBUTEROL SULFATE 3 ML SOLUTION IH SCH (07:20)
--- NOTE | 2018-07-15 07:40 | NUR ---
Aj KOTHARI NP, IN ROOM ASSESSING/SPEAKING WITH PT. QUESTIONS ANSWERED BY NURSE RECRUITER.
--- NOTE | 2018-07-15 08:04 | NUR ---
DR. GONZALES IN ROOM SPEAKING WITH PT. EXPLAINING PLAN OF CARE. QUESTIONS ANSWERED BY DR. GONZALES.
[2018-07-15] MEDS: FLECAINIDE ACETATE 100 MG TABLET PO SCH (09:52)
[2018-07-15] MEDS: CITALOPRAM 20 MG TABLET PO SCH (09:52)
[2018-07-15] MEDS: GLIPIZIDE 5 MG TABLET PO SCH (09:52)
[2018-07-15] MEDS: DILTIAZEM HCL 120 MG CAP.SR.24H PO SCH (09:52)
[2018-07-15] MEDS: POTASSIUM CHLORIDE 20 MEQ ERTAB PO SCH ×2 (09:53→21:06)
[2018-07-15] MEDS: PREDNISONE 20 MG TABLET PO SCH ×2 (09:53→21:13)
[2018-07-15] MEDS: ENALAPRIL MALEATE 10 MG TABLET PO SCH (09:53)
[2018-07-15] MEDS: FAMOTIDINE/PF 20 MG/2 ML VIAL IV SCH ×2 (09:54→21:06)
[2018-07-15] MEDS: ENOXAPARIN SODIUM 40 MG/0.4 ML SYRINGE SQ SCH (09:54)
[2018-07-15] MEDS: M.V.I. IV [ADULT] 10 ML, FOLIC ACID 1 MG, THIAMINE HCL 100 MG in SODIUM CHLORIDE 0.9% 1... IV SCH (09:56)
[2018-07-15 11:00] VITALS: BP 127/61
[2018-07-15] MEDS: IPRATROPIUM 0.5 MG/2.5 ML INH IH SCH ×2 (11:25→18:27)
[2018-07-15] MEDS: GABAPENTIN 300 MG CAPSULE PO SCH ×2 (13:03→21:07)
--- NOTE | 2018-07-15 13:57 | NUR ---
DR. ALAS IN ROOM SPEAKING WITH PT. RE:PLAN OF CARE. QUESTIONS ANSWERED BY DR. ALAS.
[2018-07-15 16:00] VITALS: BP 104/57
--- NOTE | 2018-07-15 17:30 | NUR ---
CHEST TUBE DRESSING COMING OFF, SEROSANGUINEOUS DRAINAGE NOTED TO DRSG. APPLIED NEW DRY DRSG USING 4X4 GAUZE AND SECURING WITH PAPER TAPE.
[2018-07-15 19:25] VITALS: BP 131/46
[2018-07-15] MEDS: MONTELUKAST SODIUM 10 MG TAB PO SCH (21:06)
[2018-07-15] MEDS: LEVOFLOXACIN 750 MG/D5W 150 ML 150 ML IV SCH (21:06)
[2018-07-15] MEDS: SIMVASTATIN 20 MG TABLET PO SCH (21:13)
[2018-07-15] MEDS: TERAZOSIN HCL 5 MG CAPSULE PO SCH (21:13)
[2018-07-15 23:42] VITALS: BP 117/69
[2018-07-16] MEDS: IPRATROPIUM 0.5 MG/2.5 ML INH IH SCH ×5 (00:23→23:54)
[2018-07-16 03:53] VITALS: BP 107/46
[2018-07-16 04:15] LABS: BASOPHILS % (AUTO) 0.1 % (0.0-5.0); EOSINOPHILS % (AUTO) 0.1 % (0.0-8.0); HEMATOCRIT 33.3 % (42-54); LYMPHOCYTES % (AUTO) 4.6 % (21.0-51.0); MEAN CORPUSCULAR HEMOGLOBIN 32.1 pg (27.0-33.0); MEAN CORPUSCULAR HGB CONC 34.1 g/dL (32.0-36.0); MEAN CORPUSCULAR VOLUME 94.3 fL (79-99); MONOCYTES % (AUTO) 5.7 % (3.0-13.0); NEUTROPHILS % (AUTO) 89.5 % (40.0-77.0); NUCLEATED RED BLOOD CELLS 0.1 % (0.0-0.19); PLATELET COUNT (AUTO) 268 K/uL (130-400); RED BLOOD CELL COUNT(AUTO) 3.53 MIL/uL (4.50-6.20); RED CELL DISTRIBUTION WIDTH 15.8 % (11.0-15.5)
[2018-07-16] MEDS: FUROSEMIDE 10 MG/ML 2ML VIAL IVP SCH ×2 (04:32→17:28)
[2018-07-16] MEDS: CEFTAZIDIME PENTAHYDRATE 1 GM/VIAL IVP SCH ×3 (04:32→20:53)
[2018-07-16 04:41] LABS: CREATININE 1.3 mg/dL (0.5-1.5); POTASSIUM 4.7 mmol/L (3.5-5.1)
[2018-07-16] MEDS: VANCOMYCIN 500MG+NS 100ML 100 ML IV SCH ×2 (06:13→17:29)
[2018-07-16] MEDS: INSULIN HUMULIN R 100 UNIT/ML 3ML SQ SCH ×4 (06:31→20:56)
[2018-07-16] MEDS: PANTOPRAZOLE SODIUM 40 MG TABLET.DR PO SCH (06:31)
[2018-07-16] MEDS: BUDESONIDE 0.5 MG/2 ML INH IH SCH ×2 (06:50→18:47)
[2018-07-16 07:48] VITALS: BP 120/65
[2018-07-16] MEDS: M.V.I. IV [ADULT] 10 ML, FOLIC ACID 1 MG, THIAMINE HCL 100 MG in SODIUM CHLORIDE 0.9% 1... IV SCH (10:17)
[2018-07-16] MEDS: GABAPENTIN 300 MG CAPSULE PO SCH ×3 (10:17→20:53)
[2018-07-16] MEDS: FAMOTIDINE/PF 20 MG/2 ML VIAL IV SCH (10:17)
[2018-07-16] MEDS: DILTIAZEM HCL 120 MG CAP.SR.24H PO SCH (10:17)
[2018-07-16] MEDS: ENALAPRIL MALEATE 10 MG TABLET PO SCH (10:18)
[2018-07-16] MEDS: CITALOPRAM 20 MG TABLET PO SCH (10:18)
[2018-07-16] MEDS: FLECAINIDE ACETATE 100 MG TABLET PO SCH (10:18)
[2018-07-16] MEDS: PREDNISONE 20 MG TABLET PO SCH (10:18)
[2018-07-16] MEDS: GLIPIZIDE 5 MG TABLET PO SCH (10:18)
[2018-07-16] MEDS: POTASSIUM CHLORIDE 20 MEQ ERTAB PO SCH ×2 (10:19→20:55)
[2018-07-16] MEDS: ENOXAPARIN SODIUM 40 MG/0.4 ML SYRINGE SQ SCH (10:19)
--- NOTE | 2018-07-16 11:23 | NUR ---
[facility]. MOT AND EMS FORM SIGNED AND IN CHART. Addendum: 07/16/18 at 1124 by BRANDON ANDRADE RN CM Amended: Links added.
[2018-07-16 11:54] VITALS: BP 120/78
[2018-07-16 16:01] VITALS: BP 107/54
[2018-07-16 19:16] VITALS: BP 103/74
[2018-07-16] MEDS: LEVOFLOXACIN 750 MG/D5W 150 ML 150 ML IV SCH (20:53)
[2018-07-16] MEDS: TERAZOSIN HCL 5 MG CAPSULE PO SCH (20:54)
[2018-07-16] MEDS: FAMOTIDINE 20MG TAB 20 MG TAB PO SCH (20:54)
[2018-07-16] MEDS: SIMVASTATIN 20 MG TABLET PO SCH (20:54)
[2018-07-16] MEDS: MONTELUKAST SODIUM 10 MG TAB PO SCH (20:55)
[2018-07-16 23:39] VITALS: BP 126/62
[2018-07-17 04:08] VITALS: BP 116/57
[2018-07-17] MEDS: CEFTAZIDIME PENTAHYDRATE 1 GM/VIAL IVP SCH ×2 (04:18→13:41)
[2018-07-17] MEDS: FUROSEMIDE 10 MG/ML 2ML VIAL IVP SCH (04:19)
[2018-07-17 04:26] LABS: HEMATOCRIT 34.5 % (42-54); MEAN CORPUSCULAR HEMOGLOBIN 31.8 pg (27.0-33.0); MEAN CORPUSCULAR HGB CONC 33.6 g/dL (32.0-36.0); MEAN CORPUSCULAR VOLUME 94.5 fL (79-99); PLATELET COUNT (AUTO) 283 K/uL (130-400); RED BLOOD CELL COUNT(AUTO) 3.65 MIL/uL (4.50-6.20); RED CELL DISTRIBUTION WIDTH 15.8 % (11.0-15.5)
[2018-07-17] MEDS: VANCOMYCIN 500MG+NS 100ML 100 ML IV SCH ×2 (04:27→17:22)
[2018-07-17 04:45] LABS: CREATININE 1.1 mg/dL (0.5-1.5); MAGNESIUM 1.9 mg/dL (1.80-2.40); PHOSPHORUS 2.3 mg/dL (2.5-4.9); POTASSIUM 4.3 mmol/L (3.5-5.1)
[2018-07-17] MEDS: INSULIN HUMULIN R 100 UNIT/ML 3ML SQ SCH ×3 (05:17→17:24)
[2018-07-17] MEDS: BUDESONIDE 0.5 MG/2 ML INH IH SCH ×2 (06:10→19:22)
[2018-07-17] MEDS: IPRATROPIUM 0.5 MG/2.5 ML INH IH SCH ×3 (06:10→19:22)
[2018-07-17 07:27] VITALS: BP 145/55
[2018-07-17] MEDS ORDERED: THIAMINE HCL 100 MG TABLET PO SCH (09:00)
[2018-07-17] MEDS ORDERED: PREDNISONE 20 MG TABLET PO SCH (09:00)
[2018-07-17] MEDS ORDERED: PRENATAL VITAMIN RX TABLET PO SCH (09:00)
[2018-07-17] MEDS: PANTOPRAZOLE SODIUM 40 MG TABLET.DR PO SCH (09:34)
[2018-07-17] MEDS: GABAPENTIN 300 MG CAPSULE PO SCH ×2 (09:35→13:41)
[2018-07-17] MEDS: DILTIAZEM HCL 120 MG CAP.SR.24H PO SCH (09:35)
[2018-07-17] MEDS: ENALAPRIL MALEATE 10 MG TABLET PO SCH (09:35)
[2018-07-17] MEDS: GLIPIZIDE 5 MG TABLET PO SCH (09:36)
[2018-07-17] MEDS: FLECAINIDE ACETATE 100 MG TABLET PO SCH (09:36)
[2018-07-17] MEDS: FAMOTIDINE 20MG TAB 20 MG TAB PO SCH (09:36)
[2018-07-17] MEDS: CITALOPRAM 20 MG TABLET PO SCH (09:36)
[2018-07-17] MEDS: POTASSIUM CHLORIDE 20 MEQ ERTAB PO SCH (09:37)
[2018-07-17] MEDS: ENOXAPARIN SODIUM 40 MG/0.4 ML SYRINGE SQ SCH (09:38)
[2018-07-17 11:02] VITALS: BP_SYST 109; BP_SYST 124; BP_DIAS 69; BP_DIAS 75
[2018-07-17] MEDS: TRAMADOL HCL 50 MG TABLET PO PRN (15:22)
[2018-07-17] MEDS ORDERED: FUROSEMIDE 20 MG TABLET PO SCH (18:00)
== END 2018-07-17 19:52 | DRG 853 ==
LOC: EDH 12:20 → EDHIP 14:00 → 2AH 15:45 → 2BH 07-12 15:30 → 2AH 07-13 18:16
PROVIDERS: ADMIT Internal Medicine Critical Care Medicine; ATTEND Internal Medicine Critical Care Medicine
PROC: 0W993ZZ Drainage of Right Pleural Cavity, Percutaneous Approach (ICD-10-PCS; 2018-07-10)
PROC: 5A09357 Assistance with Respiratory Ventilation, Less than 24 Consecutive Hours, Continuous Positive Airway Pressure (ICD-10-PCS; 2018-07-10)
PROC: 5A09357 Assistance with Respiratory Ventilation, Less than 24 Consecutive Hours, Continuous Positive Airway Pressure (ICD-10-PCS; 2018-07-11)
PROC: 5A09357 Assistance with Respiratory Ventilation, Less than 24 Consecutive Hours, Continuous Positive Airway Pressure (ICD-10-PCS; 2018-07-12)
PROC: 0BDN4ZZ Extraction of Right Pleura, Percutaneous Endoscopic Approach (ICD-10-PCS; principal; 2018-07-12 11:00)
PROC: 0W9930Z Drainage of Right Pleural Cavity with Drainage Device, Percutaneous Approach (ICD-10-PCS; 2018-07-12 11:00)
PROC: 02HV33Z Insertion of Infusion Device into Superior Vena Cava, Percutaneous Approach (ICD-10-PCS; 2018-07-13)
PROC: 5A09357 Assistance with Respiratory Ventilation, Less than 24 Consecutive Hours, Continuous Positive Airway Pressure (ICD-10-PCS; 2018-07-13)
PROC: 5A09357 Assistance with Respiratory Ventilation, Less than 24 Consecutive Hours, Continuous Positive Airway Pressure (ICD-10-PCS; 2018-07-14)
PROC: 5A09357 Assistance with Respiratory Ventilation, Less than 24 Consecutive Hours, Continuous Positive Airway Pressure (ICD-10-PCS; 2018-07-15)
PROC: 5A09357 Assistance with Respiratory Ventilation, Less than 24 Consecutive Hours, Continuous Positive Airway Pressure (ICD-10-PCS; 2018-07-16)
DX: A41.9 Sepsis, unspecified organism (principal); J18.9 Pneumonia, unspecified organism; J96.01 Acute respiratory failure with hypoxia; J91.8 Pleural effusion in other conditions classified elsewhere; E11.9 Type 2 diabetes mellitus without complications; I10 Essential (primary) hypertension; E66.01 Morbid (severe) obesity due to excess calories; F41.9 Anxiety disorder, unspecified; G47.33 Obstructive sleep apnea (adult) (pediatric); I25.10 Atherosclerotic heart disease of native coronary artery without angina pectoris; I48.2 Chronic atrial fibrillation; Z68.38 Body mass index [BMI] 38.0-38.9, adult; Z88.0 Allergy status to penicillin; Z79.01 Long term (current) use of anticoagulants
CPT/HCPCS: 36415; 36600; 71045; 71250; 80048; 80053; 80202; 82150; 82550; 82803; 82945; 82948; 83605; 83615; 83735; 83880; 83986; 84100; 84155; 84157; 84484; 85025; 85027; 85610; 85730; 86850; 86900; 86901; 86922; 87040; 87071; 87076; 87116; 87205; 87206; 88108; 88305; 89051; 93005; 94640; 94660; 94664; 94667; 94760; 97039; 99291; A4218; A4344; A4606; A7048; C1751; C1894; G0378; J0330; J0713; J1100; J1650; J1815; J1940; J1956; J2001; J2060; J2185; J2250; J2405; J2704; J2710; J2920; J2930; J3010; J3370; J3411; J3490; J7030; J7040; P9047

== ENCOUNTER 2019-03-02 07:27 | Observation (INO) | payer OTHER ==
[~2019-03-02 07:27] MED LIST changes: -APIX5TAB PO; -BLOO-462 MC; -DILT240C3 PO; +DILT240C97 PO; +OMEP40CA13 PO; -OMEP40CA37 PO; +RIVA20TA PO; +SIMV-43 PO; -SIMV20TA6 PO; -[UNRECOGNIZED DRUG - CODE] MC
[2019-03-02 09:06] LABS: BASOPHILS % (AUTO) 1.4 % (0.0-5.0); EOSINOPHILS % (AUTO) 1.8 % (0.0-8.0); HEMATOCRIT 35.5 % (42-54); MEAN CORPUSCULAR HEMOGLOBIN 28.4 pg (27.0-33.0); MEAN CORPUSCULAR VOLUME 91.7 fL (79-99); MONOCYTES % (AUTO) 10.8 % (3.0-13.0); NEUTROPHILS % (AUTO) 63.4 % (40.0-77.0); PLATELET COUNT (AUTO) 145 K/uL (130-400); RED BLOOD CELL COUNT(AUTO) 3.87 MIL/uL (4.50-6.20); WHITE BLOOD COUNT (AUTO) 4.9 K/uL (4.8-10.8)
[2019-03-02 09:31] LABS: B-TYPE NATRIURETIC PEPTIDE 453 pg/mL (0-100)
[2019-03-02 09:51] LABS: ALBUMIN 2.4 g/dL (3.5-5.0); BILIRUBIN,DIRECT 0.3 mg/dL (0.0-0.3); BILIRUBIN,TOTAL 0.6 mg/dL (0.2-1.0); CREATININE 1.6 mg/dL (0.5-1.5); TOTAL PROTEIN, SERUM 6.7 g/dL (6.0-8.3)
[2019-03-02] MEDS ORDERED: IPRATROPIUM 0.5 MG/2.5 ML INH IH ONE (12:05)
[2019-03-02 12:28] LABS: ABG BASE EXCESS 0.6 mmol/L (-2.0-3.0); ABG HCO3 26.7 mmol/L (21.0-28.0); ABG OXYGEN SATURATION 85.7 % (95.0-99.0); ABG PCO2 48 mmHg (35-48)
[2019-03-02] MEDS ORDERED: METOPROLOL TARTRATE 1 MG/ML 5ML VIAL IV ONE ×2 (13:44→20:30)
[2019-03-02] MEDS ORDERED: HYDRALAZINE HCL 20 MG/ML VIAL IV PRN (14:30)
[2019-03-02] MEDS ORDERED: GUAIFENESIN-DM 200/20 MG 10 ML PO PRN (14:30)
[2019-03-02] MEDS ORDERED: HYDROCODONE/ACETAMINOPHEN 5/325 MG TAB PO PRN (14:30)
[2019-03-02] MEDS ORDERED: ACETAMINOPHEN 325 MG TAB PO PRN ×2 (14:30)
[2019-03-02] MEDS ORDERED: METOPROLOL TARTRATE 1 MG/ML 5ML VIAL IV PRN (14:30)
[2019-03-03 03:43] LABS: ABG BASE EXCESS -1.6 mmol/L (-2.0-3.0); ABG HCO3 23.2 mmol/L (21.0-28.0); ABG OXYGEN SATURATION 91.3 % (95.0-99.0); ABG PCO2 40 mmHg (35-48)
[2019-03-03] MEDS ORDERED: IPRATROPIUM/ALBUTEROL SULFATE 3 ML SOLUTION IH ONE ×2 (06:30→09:54)
[2019-03-03] MEDS ORDERED: IPRATROPIUM 0.5 MG/2.5 ML INH IH ONE ×2 (06:40→13:13)
[2019-03-03] MEDS: IPRATROPIUM 0.5 MG/2.5 ML INH IH PRN ×2 (06:43→13:34)
[2019-03-03] MEDS ORDERED: PANTOPRAZOLE SODIUM 40 MG TABLET.DR PO SCH (09:00)
[2019-03-03 09:16] LABS: MEAN CORPUSCULAR HGB CONC 30.5 g/dL (32.0-36.0); MEAN CORPUSCULAR VOLUME 91.6 fL (79-99); PLATELET COUNT (AUTO) 159 K/uL (130-400); RED BLOOD CELL COUNT(AUTO) 4.15 MIL/uL (4.50-6.20); RED CELL DISTRIBUTION WIDTH 15.9 % (11.0-15.5); WHITE BLOOD COUNT (AUTO) 4.1 K/uL (4.8-10.8)
[2019-03-03 09:28] LABS: CREATININE 1.2 mg/dL (0.5-1.5); POTASSIUM 3.9 mmol/L (3.5-5.1)
[2019-03-03 11:00] VITALS: BP 126/93
--- NOTE | 2019-03-03 11:00 | NUR ---
DC Telephone call received from Lisette kern NP. Ok to discharge.
--- NOTE | 2019-03-03 12:18 | NUR ---
CALLED TO BEDSIDE OF PT DISCHARGED FROM ER DEEMED SAFE TO BE DISCHARGED, CAME TO ED BECAUSE OF POWER OUTAGE AT HOME- PT IS OXYGEN DEPENDENT AND WENT WITHOUT CONCENTRATOR STATES FEEL SAFE TO RETURN, POWER PROBLEM SOLVED . PT IS BED BOUND, LIVES WITH AND IS CARED FOR BY PROVIDER, JOHN BARNETT, HAS [facility] PAP[facility] FILLED OUT AND SENT, TONA AWARE Addendum: 03/03/19 at 1224 by ALIZE GARCIA RN CM Amended: Links added.
== END 2019-03-03 14:52 | disposition home or self-care (01) ==
LOC: EDH 07:27 → EDHIP 14:20
PROVIDERS: ADMIT Internal Medicine Critical Care Medicine; ATTEND Internal Medicine Critical Care Medicine
DX: J44.9 Chronic obstructive pulmonary disease, unspecified (principal); J96.21 Acute and chronic respiratory failure with hypoxia; I48.91 Unspecified atrial fibrillation; I10 Essential (primary) hypertension; E11.9 Type 2 diabetes mellitus without complications; E78.5 Hyperlipidemia, unspecified; E66.9 Obesity, unspecified; Z99.81 Dependence on supplemental oxygen; Z79.84 Long term (current) use of oral hypoglycemic drugs; Z79.51 Long term (current) use of inhaled steroids; Z79.01 Long term (current) use of anticoagulants; Z79.899 Other long term (current) drug therapy; Z87.891 Personal history of nicotine dependence; Z88.0 Allergy status to penicillin
CPT/HCPCS: 36415 ×2; 36600 ×3; 71045; 80048 ×2; 80076; 82550; 82803 ×2; 83880; 84484; 85025; 85027; 93005; 94640 ×3; 94660 ×2; 94664; 99284; G0378 ×25; J3490 ×2

== ENCOUNTER 2019-03-30 09:24 | Emergency (ER) | payer OTHER ==
[~2019-03-30 09:24] MED LIST changes: -GLIP5TAB11 PO; -MONT10TA24 PO
[2019-03-30 09:42] LABS: BASOPHILS % (AUTO) 0.9 % (0.0-5.0); EOSINOPHILS % (AUTO) 0.4 % (0.0-8.0); HEMATOCRIT 37.6 % (42-54); LYMPHOCYTES % (AUTO) 21.8 % (21.0-51.0); MEAN CORPUSCULAR HEMOGLOBIN 28.9 pg (27.0-33.0); MEAN CORPUSCULAR HGB CONC 31.4 g/dL (32.0-36.0); MEAN CORPUSCULAR VOLUME 91.9 fL (79-99); NEUTROPHILS % (AUTO) 67.5 % (40.0-77.0); PLATELET COUNT (AUTO) 164 K/uL (130-400); RED BLOOD CELL COUNT(AUTO) 4.09 MIL/uL (4.50-6.20); RED CELL DISTRIBUTION WIDTH 16.2 % (11.0-15.5); WHITE BLOOD COUNT (AUTO) 7.4 K/uL (4.8-10.8)
[2019-03-30 09:52] LABS: CREATININE 1.4 mg/dL (0.5-1.5); POTASSIUM 5.4 mmol/L (3.5-5.1)
[2019-03-30 09:57] LABS: ALBUMIN 2.8 g/dL (3.5-5.0); BILIRUBIN,TOTAL 0.6 mg/dL (0.2-1.0); TOTAL PROTEIN, SERUM 7.1 g/dL (6.0-8.3)
[2019-03-30 10:04] LABS: CREATINE KINASE, TOTAL 27 U/L (21-232); MYOGLOBIN 72 ng/mL (10-92); TROPONIN I < 0.04 ng/mL (0.00-0.06)
[2019-03-30 10:28] LABS: B-TYPE NATRIURETIC PEPTIDE 421 pg/mL (0-100)
[2019-03-30] MEDS ORDERED: IPRATROPIUM/ALBUTEROL SULFATE 3 ML SOLUTION IH ONE (12:20)
== END 2019-03-30 16:40 | disposition home or self-care (01) ==
LOC: EDH 09:24
DX: J96.01 Acute respiratory failure with hypoxia (principal); I48.91 Unspecified atrial fibrillation; E11.9 Type 2 diabetes mellitus without complications; E78.5 Hyperlipidemia, unspecified; I10 Essential (primary) hypertension; Z88.0 Allergy status to penicillin
CPT/HCPCS: 36415; 71045; 80053; 82550; 83874; 83880; 84484; 85025; 94640